=== PATIENT | female | born 1995 | race Caucasian/White ===

== ENCOUNTER 2017-07-05 08:29 | Day surgery (SDC) | payer BC ==
[2017-07-01 15:51] VITALS: BMI 24.7
[~2017-07-05 08:29] MED LIST: DEXAMETHASONE SOD PHOSPHATE 4 MG/ML 1 ML VIAL IV ONE; FAMOTIDINE 20 MG/2 ML VIAL IV ONE; LACTATED RINGERS 1,000 ML IV SCH; MORPHINE SULFATE 2 MG/ML SYRINGE IV PRN; ONDANSETRON 4 MG/2 ML VIAL IVP ONE; ONDANSETRON 4 MG/2 ML VIAL IVP PRN; Pre Op ABX Message 1 EACH MISC MISCELLANE ONE
[2017-07-05] MEDS ORDERED: LIDOCAINE 1% 20 ML VIAL (10MG/ML) FOR IV START INTRADERMA ONE (09:00)
[2017-07-05] MEDS ORDERED: DEXAMETHASONE SOD PHOS (MDV) 100 MG/10 ML VIAL ONE (09:50)
[2017-07-05] MEDS ORDERED: MIDAZOLAM 2 MG/2 ML VIAL ONE (09:50)
[2017-07-05] MEDS ORDERED: SUCCINYLCHOLINE CHLORIDE 100 MG/5 ML SYR IV ONE (09:50)
[2017-07-05] MEDS ORDERED: PROPOFOL 10 MG/ML 20 ML VIAL IV ONE (09:50)
[2017-07-05] MEDS ORDERED: fentaNYL (PF) 50 MCG/ML 2 ML AMP ONE (09:50)
[2017-07-05] MEDS ORDERED: HYDROmorphone (PF) 1 MG/ML ONE (09:50)
[2017-07-05] MEDS ORDERED: LIDOCAINE 1% INJ 10MG/ML (20 ML MDV) ONE (09:50)
[2017-07-05] MEDS ORDERED: LIDOCAINE 2%-EPI 1:100,000 20 ML VIAL SQ ONE (10:13)
[2017-07-05] MEDS ORDERED: BUPIVACAINE (PF) 0.25% 30 ML VIAL SQ ONE (10:13)
--- NOTE | 2017-07-05 10:49 | P.OP ---
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 She needs antibiotics every other month for her chronic tonsillitis. Then this is been going on for 5 years. The left side is more swollen than the right. Should this to dysphagia, odontophagia, and halitosis. She always has white pus coming from the tonsils. She has persistent cervical lymphadenopathy Operative Findings: Patient had cryptic tonsils. Tonsils have a large amount of exudate or swollen and red and inflamed. Adenoids were also large demonstrating a chronic nasopharyngitis Description of Procedure: Prior to surgery all risks, benefits, and alternative therapies were discussed in detail. Risks of bleeding, infection, need for secondary surgery, airway problems, anesthetic complications, etc. etc. were discussed in detail. Consent was obtained and all questions were answered. OPERATIVE PROCEDURE: This patient was taken to the operative room and placed in the supine position. A functioning IV line was in placed and the patient was monitored throughout the entire case by the department of anesthesia. The patient underwent general anesthetic with intubation and tube was secured. A McIvor mouth gag was placed into the patients mouth with care to avoid any trauma to the lips, teeth, gums or tongue. Mouth was opened and tongue was depressed. The tonsils were grasped with an Allis forceps and brought medially bilaterally. A subcapsular dissection was performed utilizing an Evac-70 handpiece with an Arthrotec setting of 7. The tonsils were removed without incident bilaterally and the tonsillar fossae were inspected and bleeding was nonexistent and stopped spontaneously with Coblation. A Marcaine and lidocaine mixture was injected into the peritonsillar area for anesthesia postoperatively. After the tonsillar fossae were reinspected and no bleeding was seen attention was then paid to the nasopharynx where a red rubber catheter was placed into the nose and out the mouth and used to retract the soft palate. With use of indirect mirror examination and the Coblation hand wand, the adenoid tissue was removed in that fashion again utilizing an Evac-70 handpiece with Arthrotec setting of 7. The adenoid tissues were removed and fulgurated. The patient tolerated this procedure well. The nasopharynx shows no signs of any bleeding. McIvor mouth gag and the red rubber catheter were removed. The stomach was suctioned and the patient was taken to postanesthesia recovery in excellent condition having tolerated this procedure well. The patient will follow up in the office in one week as scheduled.
[2017-07-05 10:56] VITALS: RESP 16; TEMP 97
[2017-07-05] MEDS ORDERED: ONDANSETRON 4 MG/2 ML VIAL IVP ONE (11:53)
[2017-07-05] MEDS ORDERED: LACTATED RINGERS 1,000 ML IV ONE (12:10)
[2017-07-05] MEDS ORDERED: HYDROcodone/APAP 5-325MG 1 EACH TAB PO ONE (12:20)
[2017-07-05 12:55] VITALS: BP 121/66; PULSE 87
== END 2017-07-05 13:29 | disposition home or self-care (01) ==
LOC: OR 08:29
PROVIDERS: ATTEND Otolaryngology
DX: J35.03 Chronic tonsillitis and adenoiditis (principal); J31.1 Chronic nasopharyngitis; J45.909 Unspecified asthma, uncomplicated; Z79.3 Long term (current) use of hormonal contraceptives; Z82.3 Family history of stroke
CPT/HCPCS: 42821; 88304; 84703; J2250; J2405; J2001; J3010; J1170; J1100; J0330; J2704